=== PATIENT | male | born 1935 | race Caucasian/White ===

== ENCOUNTER 2018-12-20 15:49 | Inpatient (IN) | payer OTHER, MEDICARE ==
[~2018-12-20] VITALS: Ht 172.7 cm; Wt 58.5 kg
[2018-12-20] MEDS ORDERED: DONE10TA44 PO (17:31)
[2018-12-20] MEDS ORDERED: SER25 PO (17:31)
[2018-12-20] MEDS ORDERED: MEMA10TA PO (17:31)
[2018-12-20] MEDS ORDERED: TRIH2TAB3 PO (17:31)
[2018-12-20 17:38] VITALS: BP_SYST 128
[2018-12-20] MEDS ORDERED: FLU VACC TS2019(65UP)/MF59C/PF 45 MCG/0.5 ML SYRINGE I.M. PRN (18:00)
--- NOTE | 2018-12-20 18:00 | NUR ---
ADMIT NOTE Received patient to the floor from Direct admit with a diagnosis of dehydration. Admission process initiated. patient oriented to pain management, safety and call light-teach back done.
[2018-12-20 18:44] LABS: BASOPHILS % (AUTO) 0.1 % (0.0-2.0); EOSINOPHILS # (AUTO) 0.1 K/uL (0.0-0.4); EOSINOPHILS % (AUTO) 1.7 % (0.0-4.0); HEMATOCRIT 46.6 % (36-54); HEMOGLOBIN 15.9 g/dL (14.0-18.0); LYMPHOCYTES # (AUTO) 1.9 K/uL (1.0-5.5); MEAN CORPUSCULAR HEMOGLOBIN 32 pg (27-31); MEAN CORPUSCULAR HGB CONC 34 % (32-36); MEAN CORPUSCULAR VOLUME 95 fL (79.0-98.0); MONOCYTES # (AUTO) 0.4 K/uL (0.0-1.0); MONOCYTES % (AUTO) 7.8 % (1.7-9.3); NEUTROPHILS # (AUTO) 3.3 K/uL (1.8-7.7); NEUTROPHILS % (AUTO) 57.4 % (40.0-70.0); PLATELET COUNT (AUTO) 198 K/uL (130-430); RED BLOOD CELL COUNT(AUTO) 4.93 MIL/uL (4.2-6.2); RED CELL DISTRIBUTION WIDTH 13.6 % (9.0-15.0); WHITE BLOOD COUNT (AUTO) 5.7 K/uL (4.8-10.8)
[2018-12-20 19:01] LABS: ALANINE AMINOTRANSFERASE 36 U/L (12-78); ALBUMIN 3.7 g/dL (3.4-4.8); ANION GAP 10 (5-15); ASPARTATE AMINOTRANSFERASE 22 U/L (10-37); CALCIUM 8.8 mg/dL (8.4-11.0); CHLORIDE 104 mmol/L (98-107); CREATININE 0.89 mg/dL (0.55-1.30); GLUCOSE 94 mg/dL (70-99); POTASSIUM 3.6 mmol/L (3.5-5.1); SODIUM SERUM 141 mmol/L (136-145); TOTAL BILIRUBIN 0.5 mg/dL (0.0-1.0); UREA NITROGEN, BLOOD 36 mg/dL (8-21)
[2018-12-20 20:00] VITALS: BP_SYST 110
--- NOTE | 2018-12-20 20:00 | NUR ---
ASSUMED CARE. RECEIVED AWAKE,ALERT,VERY CONFUSED. AFEBRILE, NOT IN ACUTE DISTRESS. NO PAIN OR DISCOMFORT NOTED. WITH SALINE LOCK TO THE LEFT UPPER ARM INTACT. SAO2=97% ON ROOM AIR. VS STABLE, WILL CONTINUE TO MONITOR. NEEDS ATTENDED.
[2018-12-20] MEDS: cefTRIAXone 1 GM in D5W 50 ML IV SCH ×2 (21:31→22:21)
[2018-12-20] MEDS: KCL 20 mEq in D5/0.45NS 1000mL 1,000 ML IV SCH (21:32)
--- NOTE | 2018-12-20 21:32 | NUR ---
IV FLUID D5 1/2 NS + KCL 20 MEQ STARTED AT 75 ML/HR.
[2018-12-20] MEDS ORDERED: KCL 20 mEq in D5/0.45NS 1000mL 1,000 ML IV ONE (21:38)
[2018-12-20] MEDS ORDERED: cefTRIAXone 1 GM VIAL ONE (21:38)
--- NOTE | 2018-12-20 22:21 | NUR ---
ROCEPHIN 1 GM IVPB GIVEN AFTER BLOOD CULTURES WERE DRAWN.
[2018-12-20] MEDS ORDERED: QUEtiapine FUMARATE 25 MG TABLET PO SCH (23:00)
--- NOTE | 2018-12-20 23:52 | NUR ---
SEROQUEL 25 MG PO GIVEN.
[2018-12-21 01:15] VITALS: BP_SYST 121
--- NOTE | 2018-12-21 02:15 | NUR ---
PT.STILL VERY CONFUSED. SENIOR COMPLIANCE ANALYST.ALERTED RN THAT PT.IS OFF OF THE MONITOR. BECOMES AGITATED AND COMBATIVE WHEN RN TRIES TO FIX SURVEYOR HELPER ROD LEADS. ASKED PATRICK IF HE WOULD LIKE SOME PRN SEDATIVE/ANTI-ANXIETY MEDICATION BUT HE SAID TO JUST GIVE HIS SEROQUEL DOSE WHICH WAS ALREADY GIVEN.
--- NOTE | 2018-12-21 04:00 | NUR ---
AWAKE,NOT IN ACUTE DISTRESS. NOTED TO BE MORE CALM. NO PAIN OR DISCOMFORT. WILL CONTINUE TO MONITOR. NEEDS ATTENDED.
--- NOTE | 2018-12-21 04:25 | NUR ---
URINE SPECIMEN COLLECTED AND HANDED OVER TO LAB.SPECIAL EDUCATION PROFESSOR RADHA.
[2018-12-21 04:41] LABS: BILIRUBIN,URINE NEGATIVE (NEGATIVE); BLOOD, URINE NEGATIVE (NEGATIVE); CLARITY/URINE SL HAZY (CLEAR); COLOR,URINE YELLOW (YELLOW); GLUCOSE,URINE NEGATIVE (NEGATIVE); KETONES,URINE NEGATIVE (NEGATIVE); LEUKOCYTE ESTERASE ,URINE TRACE (NEGATIVE); NITRITE, URINE POSITIVE (NEGATIVE); PH,URINE 7.5 (5.0-8.0); PROTEIN URINE NEGATIVE (NEGATIVE); UROBILINOGEN,URINE 0.2 (0.2-1.0)
[2018-12-21 05:14] LABS: BACTERIA,URINE MANY /HPF (None Seen); RBC,URINE 0-3 /HPF (0-3)
--- NOTE | 2018-12-21 06:30 | NUR ---
ASLEEP, NO PAIN OR DISCOMFORT. KEPT WARM AND COMFORTABLE.
--- NOTE | 2018-12-21 07:10 | NUR ---
ENDORSED CARE TO DARIO CAI STABLE.
[2018-12-21 07:41] VITALS: BP_SYST 110; BP_SYST 113
--- NOTE | 2018-12-21 07:50 | NUR ---
INITIAL NOTE RECEIVED PT IN BED, NO S/S OF DISTRESS OR SOB NOTED, PT HAS NO FACIAL GRIMACING FOR PAIN AT THIS TIME, PT IN STABLE CONDITION, PT AAOX1, VERBAL, CONFUSED, PROVIDED PT WITH REALITY ORIENTATION. IV CATHETER PATENT, NO SIGNS OF INFECTION OR INFILTRATION NOTED, RUNNING IV FLUIDS ORDERED. BED AT LOWEST POSITION, CALL LIGHT WITHIN REACH, WILL CONTINUE TO MONITOR PT FOR ANY CHANGES. FALL AND SAFETY PRECAUTIONS IN PLACE. BED ALARM ON.
[2018-12-21] MEDS: TRIHEXYPHENIDYL HCL 2 MG TABLET (ARTANE) PO SCH ×2 (08:29→20:03)
[2018-12-21] MEDS: MEMANTINE HCL 5 MG TABLET PO SCH ×2 (08:29→20:00)
--- NOTE | 2018-12-21 09:59 | NUR ---
Nutrition Update Mazin Scale 15 noted. Pt admitted for dehydration, multiple falls, UTI. Diet: regular BMI: 19.6 kg/m2 RD to follow per nutrition care standards.
--- NOTE | 2018-12-21 10:00 | NUR ---
PT PT AMBULATED WITH PHYSICAL THERAPY, WEAK GAIT NOTED.
[2018-12-21] MEDS: KCL 20 mEq in D5/0.45NS 1000mL 1,000 ML IV SCH ×2 (10:14→22:16)
--- NOTE | 2018-12-21 10:20 | NUR ---
ROUNDS PT IN BED, NO S/S OF DISTRESS OR SOB NOTED, PT HAS NO FACIAL GRIMACING OR C/O PAIN AT THIS TIME, PT IN STABLE CONDITION. PT RESTING COMFORTABLY. BED ALARM ON, SAFETY PRECAUTIONS IN PLACE.
--- NOTE | 2018-12-21 12:04 | NUR ---
Fall Risk Patient is high fall risk due to altered mental status and history of multiple falls. Patient educated on how to use call light. Patient instructed not to get up without assistance. Patient educated to risk of injury if fall occurs. Three side rails up at all times and bed alarm on. Patient unable to demonstrate proper use of call light. Patient demonstrating less impulsivity. Will continue to reorient patient and round frequently.
[2018-12-21 12:24] VITALS: BP_SYST 108
--- NOTE | 2018-12-21 12:55 | NUR ---
ROUNDS PT IN BED, NO S/S OF DISTRESS OR SOB NOTED, PT HAS NO FACIAL GRIMACING OR C/O PAIN AT THIS TIME, PT IN STABLE CONDITION. PT RESTING COMFORTABLY. BED ALARM ON, SAFETY PRECAUTIONS IN PLACE. PT CONTINUES TO BE CONFUSED BUT REDIRECTABLE AT THIS TIME.
--- NOTE | 2018-12-21 14:50 | NUR ---
ROUNDS PT IN BED, NO S/S OF DISTRESS OR SOB NOTED, PT HAS NO C/O PAIN AT THIS TIME, PT IN STABLE CONDITION. PT RESTING COMFORTABLY, WILL CONTINUE TO MONITOR PT FOR ANY CHANGES. BED ALARM ON AND SAFETY AND FALL PRECAUTIONS IN PLACE.
[2018-12-21 16:41] VITALS: BP_SYST 113
--- NOTE | 2018-12-21 16:45 | NUR ---
CALL DR DEBI CHAMPION, AWAITING CALL BACK, PT ATTEMPTED TO GET OUT OF BED THREE TIMES, UNABLE TO EDUCATE PT DUE TO CONFUSION. ATTEMPTED TO ORIENT PATIENT BUT UNABLE DUE TO MENTAL STATUS. CHARGE NURSE MADE AWARE. PT UNABLE TO BE REDIRECTED, BED ALARM ON, THREE SIDE RAILS UP AND IN PLACE. CALL LIGHT WITHIN REACH. Addendum: 12/21/18 at 1807 by Estee Bosch RN [id number] MD WOODRUFF FOR ORDER FOR SITTER, PT CONTINUES TO ATTEMPT TO GET OUT BED, CONFUSED, UNABLE TO REORIENT PATIENT. NURSE STANDING NEXT TO PT FOR SAFETY.
--- NOTE | 2018-12-21 18:22 | NUR ---
MD ROUNDS DR CARRERA ROUNDCAROL ANN, AWARE OF PATIENT'S CONDITION. AWARE THAT PT IS CONFUSED AND UNABLE TO RE ORIENT. MD GAVE ORDER FOR SITTER AT BEDSIDE AND TO D/C TELE AND CHANGE PT TO MED SURG.
--- NOTE | 2018-12-21 18:37 | NUR ---
CLOSING NOTE PT IN BED, NO S/S OF DISTRESS OR SOB NOTED, PT HAS NO FACIAL GRIMACING FOR PAIN AT THIS TIME, PT IN STABLE CONDITION, PT AAOX1, VERBAL, CONFUSED, PROVIDED PT WITH REALITY ORIENTATION. UNABLE TO REDIRECT PT NOT TO GET OUT OF BED, SITTER AT BEDSIDE FOR SAFETY. IV CATHETER PATENT, NO SIGNS OF INFECTION OR INFILTRATION NOTED, RUNNING IV FLUIDS ORDERED. BED AT LOWEST POSITION, CALL LIGHT WITHIN REACH, WILL ENDROSE CARE OF PT TO INCOMING NURSE. FALL AND SAFETY PRECAUTIONS IN PLACE. BED ALARM ON.
--- NOTE | 2018-12-21 19:10 | NUR ---
OPENING NOTES RECEIVED PATIENT IN BED ALERT/CONFUSED. BREATHING UNLABORED ON ROOM AIR. IVF INFUSING ORDERED. SITTER AT BEDSIDE. BED IN LOWEST LOCKED POSITION WITH ALARM ON.
[2018-12-21 19:51] VITALS: BP_SYST 119
[2018-12-21] MEDS: DONEPEZIL HCL 5 MG TABLET (ARICEPT) PO SCH (20:01)
[2018-12-21] MEDS: ENOXAPARIN SODIUM 40 MG/0.4 ML SYRINGE SUBCUT SCH (20:03)
--- NOTE | 2018-12-21 20:03 | NUR ---
MED PASS PATIENT DUE MEDICATIONS GIVEN AND TOLERATED. VITAL SIGNS STABLE.
--- NOTE | 2018-12-21 20:45 | NUR ---
IV LINE OLD IV LINE OUT. NEW IV LINE INSERTED TO LFA # 22 WITH GOOD BLOOD RETURN.
[2018-12-21] MEDS ORDERED: QUEtiapine FUMARATE 25 MG TABLET PO SCH (21:00)
[2018-12-21] MEDS: cefTRIAXone 1 GM in D5W 50 ML IV SCH (22:14)
[2018-12-21 22:56] VITALS: BP_SYST 123
--- NOTE | 2018-12-22 00:14 | NUR ---
INCONTINENCE INCONTINENCE CARE DONE BY SITTER/WOVEN LABEL DESIGNER. PATIENT KEPT CLEAN AND DRY.
--- NOTE | 2018-12-22 01:40 | NUR ---
ENDORSED PATIENT CARE ENDORSED TO RADHA CAI.
--- NOTE | 2018-12-22 02:00 | NUR ---
Assumed nursing care of the patient from nurse Haskins. The patient is awake and appears confused. Patient is oriented to name only. Direct observer is in the room with patient. IV fluid of D51/2 NS+20Meq KCL is infusing well in LFA at 75ml/hr without any signs of infiltration. Fall and safety precautions are in place. No acute distress is noted.
--- NOTE | 2018-12-22 04:00 | NUR ---
Patient was sleeping. No signs of distress were present. Fall and safety precautions were in place. Direct observer was in the room with the patient.
--- NOTE | 2018-12-22 06:19 | NUR ---
Pt is awake and resting quietly in bed. All pt's needs were attended to. IV fluid is infusing well in LFA without any signs of infiltration. Direct observer is at the bedside. Will endorse to day shift nurse.
[2018-12-22 08:00] VITALS: BP_SYST 126
--- NOTE | 2018-12-22 08:00 | NUR ---
RN INITIAL NOTES RECEIVED PATIENT IN BED VERBAL AND NOT IN ANY DISTRSS IVF INFUSING TO LEFT ARM ORDERED 'PATIENT TOOK MED SWITH NO PROBLEM PATIENT IS CONFUSED, WILL CONT CARE
[2018-12-22] MEDS: MEMANTINE HCL 5 MG TABLET PO SCH ×2 (09:33→21:27)
[2018-12-22] MEDS: TRIHEXYPHENIDYL HCL 2 MG TABLET (ARTANE) PO SCH ×2 (09:34→21:27)
--- NOTE | 2018-12-22 10:00 | NUR ---
ROUNDS PATIENT INTERMITTENTLY ASLEEP AND ANSWERS QUESTION WILL CONT TO MONITO
[2018-12-22 11:21] VITALS: BP_SYST 143
--- NOTE | 2018-12-22 12:30 | NUR ---
ROUNDS PATIENT STARTED TO TALK NOS STOP AND WANTS THE POLICE TO BE CALLED FOR HELP REORIENTED AND REDIRECTED BUT WITH SHORT ATTENTION SPAN . PATIENT WAS WALKED BY PHYSICAL THERAPIST AND ABLE TO TOLERATE
--- NOTE | 2018-12-22 13:49 | NUR ---
PHYSICAL THERAPY CO-SIGN The Physical Therapy Progress Notes documented by Silica Mixer Operator have been reviewed. Reviewed/Co-Signed by: Ben Saavedra. PT Documentation Done by: BLAYNE WEI PTA Addendum: 12/22/18 at 1351 by Ben Saavedra PT Amended: Links added.
--- NOTE | 2018-12-22 13:50 | NUR ---
PHYSICAL THERAPY CO-SIGN The Physical Therapy Progress Notes documented by Used Car Lot Porter have been reviewed. Reviewed/Co-Signed by: Ben Saavedra PT Documentation Done by: BLAYNE WEI PTA Addendum: 12/22/18 at 1351 by Ben Saavedra PT Amended: Links added.
--- NOTE | 2018-12-22 14:00 | NUR ---
AGITATION PATIENT FULLY AWAKE THIS TIME AND STARTED TO TALK NOS STOP AND WANTS THE POLICE . GUARD CAME BY AND SPOKE WITH THE PATIENT AND ABLE TO SPEAK WITH HIM AND PATIENT STILL KEEP TALKING , REFUSED TO BE CHANGED , WILL NOTIFY DR GALLAGHER FOR THE BEHAVIOUR AND ORDER
--- NOTE | 2018-12-22 15:24 | NUR ---
Service Clerk: Met with pt. who had multiple falls [employer] met with pt. who was a poor historian. Pt. stated he did not have lunch and his sitter interjected stating he did eat. CHIEF [employer] told pt. she will ask his Rn. Kylah if she could get him a snack after their meeting. Pt. tried to answer the questions to the best of his ability, but he was unable to answer any questions. [employer] was not able to complete the Discharge Planning Assessment. Pt. did not know what type of dwelling he lives in. Pt did not know details about his emergency contacts. CH[employer] told him it was ok and that she could look up some answers in the computer. Pt. did not remember if he fell. CHIEF [employer]ON [employer] thanks pt. for his time and told him he could have his Rn call oncology social work if he wanted to speak to anyone. [employer] will remain available as needed. [employer] called Isabella Lamas who stated she is pts. . She was able to fill in the blanks for [employer] to complete the DCPA. Please see assessment. As far as family support, Isabella stated Marylu is their adult daughter who resides in [place]. Her other adult daughter, Phillip and adult son, Avtar reside with her and her (pt.). states she will come see the pt. today before visiting hours are done. [employer]F [employer] thanked her for her help and will remain available as needed.
[2018-12-22 15:36] VITALS: BP_SYST 108
[2018-12-22] MEDS: KCL 20 mEq in D5/0.45NS 1000mL 1,000 ML IV SCH (15:54)
[2018-12-22] MEDS ORDERED: HALOPERIDOL LACTATE 5 MG/ML VIAL IM ONE (17:30)
--- NOTE | 2018-12-22 17:45 | NUR ---
DELON CALLED DR CARRERA PATIENT AGIATATION INCREASED AND PULLED AND CUT IV UNABLE TO CHECK PATIENT KICK AND HIT STAFF , ABLE TO GIVE HALDOL IM
--- NOTE | 2018-12-22 18:18 | NUR ---
THE PT CUT HIS IV TUBE AND HIS BLEEDING FROM HIS IV I TRY TO CLEAN HIM ME AND THE SITTER PUT THE PATIENT HITTING US AND KIKKING RN GIVE HIM MEDICITION TO BE CAME DOWN I TOLD ANTOTHER SHIFT THE LAMINATING MACHINE OFFBEARER TO CLEAN HIM WHEN HE CAM DOWN BECAUSE I TRY PUT I GET HIT FROM HIM
--- NOTE | 2018-12-22 19:07 | NUR ---
ENDORSEMENT PATIENT WILL BE ENDORSED TO NEXT SHIFT TO FIV IV LINE . PATIENT STARTING TO CALM FROM HALDOL BUT STILL HITS WHENEVER TOUCHED WILL FOLOOW UP WITH NEXTR SHIFT
--- NOTE | 2018-12-22 19:59 | NUR ---
Patient is in bed resting. Patient is awake and confused. Patient is orientated to name only. Direct observer is at the bedside. Saline lock in LFA is in place. IV fluid is not connected at this time, patient is taking off his gown. Will reconnect IV fluid when patient calms down.
[2018-12-22 20:00] VITALS: BP_SYST 114
[2018-12-22] MEDS: QUEtiapine FUMARATE 25 MG TABLET PO SCH (21:27)
[2018-12-22] MEDS: DONEPEZIL HCL 5 MG TABLET (ARICEPT) PO SCH (21:27)
[2018-12-22] MEDS: ENOXAPARIN SODIUM 40 MG/0.4 ML SYRINGE SUBCUT SCH (21:28)
[2018-12-22] MEDS: cefTRIAXone 1 GM in D5W 50 ML IV SCH (21:28)
--- NOTE | 2018-12-22 21:28 | NUR ---
HS medications given. No difficulty swallowing noted. Pt remains confused and oriented to his name only. IVF is infusing well in LFA. Direct Observer is at the bedside.
--- NOTE | 2018-12-22 23:00 | NUR ---
Patient was resting in bed. Direct observer is near bedside. Patient's bed alarm is active. Fall and safety precautions are in place. IV fluid is infusing well with no signs of infiltration.
[2018-12-23 00:03] VITALS: BP_SYST 108
--- NOTE | 2018-12-23 01:00 | NUR ---
Patient is resting comfortably. Direct observer is in the room. Patient's bed is in the lowest and locked position. Fall and safety precautions are in place.
--- NOTE | 2018-12-23 03:00 | NUR ---
Pt i sleeping without any distress noted. IVF is infusing well in LFA. Direct Observer is in the room with pt.
[2018-12-23] MEDS: KCL 20 mEq in D5/0.45NS 1000mL 1,000 ML IV SCH ×2 (04:34→16:16)
--- NOTE | 2018-12-23 05:00 | NUR ---
Pt continues to sleep without any distress noted. IVF is infusing well in LFA. fall and safety precautions are in place. Direct Observer is in the room with pt.
--- NOTE | 2018-12-23 06:30 | NUR ---
Patient is resting comfortably. Direct observer is in the room. Patient's bed is in the lowest and locked position. Fall and safety precautions are in place. Patient is AOOx1 (self). All patient's needs were attended to. IV fluid is infusing LFA, no signs of infiltration. Will endorse to dayshift nurse.
--- NOTE | 2018-12-23 08:00 | NUR ---
RN INITIAL NOTES RECEIVED PATIENT IN BED ASLEEP NOT IN ANY DISTRESS PATIENT ENDORSED CALMED AND SLEEP LAST NIGHT IVF INFUSING ORDERED , WILL MONITOR AND WILL CONT WITH SITTER
--- NOTE | 2018-12-23 09:00 | NUR ---
ASLEEP PATIENT STILL SLEEPING A THIS TIME WILL GIVE MEDS ONCE AWAKE AND AGREED
[2018-12-23 09:28] VITALS: BP_SYST 124
[2018-12-23] MEDS: QUEtiapine FUMARATE 25 MG TABLET PO SCH (09:30)
[2018-12-23] MEDS: TRIHEXYPHENIDYL HCL 2 MG TABLET (ARTANE) PO SCH (09:31)
[2018-12-23] MEDS: MEMANTINE HCL 5 MG TABLET PO SCH (09:31)
--- NOTE | 2018-12-23 09:33 | NUR ---
AWKE PATIENT WOKE AND TOOK MEDS NO DISTRESS NO C/O OF PAIN
--- NOTE | 2018-12-23 11:10 | NUR ---
Discharge Planning: [facility] (f [phone] p [phone]) DCP to follow up Addendum: 12/23/18 at 1648 by Mamie Evans DP [facility] (f [phone] p [phone]) Rm 138C, [facility] ([phone]) 6:30pm P/U. Patient packet taken to nurse station. DCP made nurse aware.
[2018-12-23 11:18] VITALS: BP_SYST 137
--- NOTE | 2018-12-23 12:30 | NUR ---
ROUNDS PATIENT CALMED AT THIS TIME ATTENDED WITH CLOSE SUPERVISION BY SITTER ATE LUNCH NOT AGITATED AT THIS TIME
--- NOTE | 2018-12-23 14:00 | NUR ---
ROUNDS PATIENT STILL SLEEPING AT THIS TIME
--- NOTE | 2018-12-23 16:26 | NUR ---
DISCHARGE PATIENT SEEN BY DR LAURENT WITH ORDERS TO DC PATIENT TO [facility] AND AWAITING FOR CM TO PROCESS DISCHARGE
[2018-12-23 16:30] VITALS: BP_SYST 109
[2018-12-23 16:46] VITALS: BP_SYST 109
--- NOTE | 2018-12-23 17:30 | NUR ---
ENDORSEMENT PATIENT IS FOR DC TO [facility] REPORT GIVEN TO BASSEM AND INFORMED FASHION DIRECTOR HERE 630 PM .
--- NOTE | 2018-12-23 18:44 | NUR ---
ADDITIONAL ENDORSEMENT PATIENT IS READY FOR DC TO [facility] AND PER [facility] ASSISTANT DIRECTOR OF PLANT OPERATIONS MOVED TO 193, CHARGE NURSE MADE AWARE , PATIENT AT THIS TIME STILL WITH IV INFUSING
--- NOTE | 2018-12-23 20:06 | NUR ---
discharge: pt is chicken picker by ambulance Addendum: 12/23/18 at 2008 by Liu Petty RN ambulance [facility], all belongings is with the pt. pt health information is given to ambulance crew. id band remove and iv site remove, no bleeding noted.
--- NOTE | 2018-12-24 10:53 | NUR ---
PHYSICAL THERAPY CO-SIGN The Physical Therapy Progress Notes documented by Automation Developer have been reviewed. Reviewed/Co-Signed by: Ben Saavedra PT Documentation Done by: BLAYNE WEI PTA Addendum: 12/24/18 at 1053 by Ben Saavedra PT Amended: Links added.
== END 2018-12-23 20:10 | DRG 689 ==
LOC: STU 16:36 → SMU 12-21 23:10
PROVIDERS: ADMIT Family Medicine; ATTEND Family Medicine
DX: N39.0 Urinary tract infection, site not specified (principal); G93.41 Metabolic encephalopathy; F03.90 Unspecified dementia, unspecified severity, without behavioral disturbance, psychotic disturbance, mood disturbance, and anxiety; E86.0 Dehydration; M19.90 Unspecified osteoarthritis, unspecified site; I10 Essential (primary) hypertension
CPT/HCPCS: 36415; 80053; 81000-TC; 85025; 87040-TC; 87086; 97110-GP; 97116-GP; 97530-GP; G0378; J0696; J1630; J1650; J7060

== ENCOUNTER 2020-10-23 17:45 | Inpatient (IN) | payer OTHER, MEDICARE, SELFPAY ==
[~2020-10-23] VITALS: Ht 162.6 cm; Wt 57.6 kg
[~2020-10-23 17:45] MED LIST: DONE10TA44 PO; MEMA10TA PO; SER25 PO; TRIH2TAB3 PO
[2020-10-23 18:02] VITALS: BP_SYST 150
--- NOTE | 2020-10-23 19:43 | NUR ---
Patient to ER bed 05 to gown for evaluation. Side rails up.
[2020-10-23 19:46] LABS: ANION GAP 7 (5-15); CALCIUM 9.5 mg/dL (8.4-11.0); CHLORIDE 105 mmol/L (98-107); GLUCOSE 142 mg/dL (70-99); POTASSIUM 4.1 mmol/L (3.5-5.1); SODIUM SERUM 139 mmol/L (136-145); UREA NITROGEN, BLOOD 34 mg/dL (8-21)
[2020-10-23 19:52] LABS: ALANINE AMINOTRANSFERASE 30 U/L (12-78); ASPARTATE AMINOTRANSFERASE 17 U/L (10-37); TOTAL BILIRUBIN 0.6 mg/dL (0.0-1.0)
[2020-10-23 19:54] LABS: ACETAMINOPHEN < 1 ug/mL (1-30); ALCOHOL, BLOOD < 3 mg/dL (<10)
[2020-10-23 19:56] LABS: BASOPHILS % (AUTO) 0.2 % (0.0-2.0); EOSINOPHILS % (AUTO) 0.3 % (0.0-4.0); HEMATOCRIT 47.3 % (36-54); HEMOGLOBIN 16.1 g/dL (14.0-18.0); LYMPHOCYTES # (AUTO) 1.1 K/uL (1.0-5.5); LYMPHOCYTES % (AUTO) 12.3 % (20.5-51.5); MEAN CORPUSCULAR HEMOGLOBIN 33 pg (27-31); MEAN CORPUSCULAR HGB CONC 34 % (32-36); MEAN CORPUSCULAR VOLUME 96 fL (79.0-98.0); MONOCYTES # (AUTO) 0.4 K/uL (0.0-1.0); MONOCYTES % (AUTO) 5.2 % (1.7-9.3); NEUTROPHILS # (AUTO) 7.1 K/uL (1.8-7.7); PLATELET COUNT (AUTO) 207 K/uL (130-430); RED BLOOD CELL COUNT(AUTO) 4.95 MIL/uL (4.2-6.2); RED CELL DISTRIBUTION WIDTH 13.7 % (9.0-15.0); WHITE BLOOD COUNT (AUTO) 8.7 K/uL (4.8-10.8)
[2020-10-23 20:32] LABS: CHOLESTEROL 169 mg/dL (<200); HDL CHOLESTEROL 54 mg/dL (>45); LDL CHOLESTEROL 104 mg/dL (<100); TRIGLYCERIDES 66 mg/dL (30-150)
--- NOTE | 2020-10-23 20:33 | NUR ---
DR. OLIVA AT BEDSIDE FOR EVALUATION.
--- NOTE | 2020-10-23 20:45 | NUR ---
Pt in for medical clearance to be admitted to SNF. Pt awake and confused, able to follow commands and is redirectable at times. According to , pt's behavior has become more aggressive in nature. VS WNL, pt denies any painor discomfort.
[2020-10-23 21:04] LABS: BILIRUBIN,URINE NEGATIVE (NEGATIVE); BLOOD, URINE NEGATIVE (NEGATIVE); CLARITY/URINE CLEAR (CLEAR); COLOR,URINE YELLOW (YELLOW); GLUCOSE,URINE NEGATIVE (NEGATIVE); KETONES,URINE TRACE (NEGATIVE); LEUKOCYTE ESTERASE ,URINE TRACE (NEGATIVE); NITRITE, URINE NEGATIVE (NEGATIVE); PROTEIN URINE NEGATIVE (NEGATIVE); UROBILINOGEN,URINE 0.2 (0.2-1.0)
[2020-10-23 21:18] LABS: BARBITURATE, URINE NEGATIVE (NEG <=200); BENZODIAZEPINE, URINE NEGATIVE (NEG <=150); CANNABINOID, URINE NEGATIVE (NEG <=50); COCAINE, URINE NEGATIVE (NEG <=150); METHAMPHETAMINES SCREEN,URINE NEGATIVE (NEG <=500); OPIATE, URINE NEGATIVE (NEG <=100); PHENCYCLIDINE SCREEN,URINE NEGATIVE (NEG <=25); UR TRICYCLIC ANTIDEPRESSANTS NEGATIVE (NEG <=300); URINE AMPHETAMINE NEGATIVE (NEG <=500); URINE METHADONE NEGATIVE (NEG <=200); URINE OXYCODONE SCREEN NEGATIVE (NEG <=100); URINE PROPOXYPHENE SCREEN NEGATIVE (NEG <=300)
[2020-10-23 21:24] LABS: BACTERIA,URINE RARE /HPF (None Seen); RBC,URINE NONE SEEN /HPF (0-3); WBC,URINE 0-3 /HPF (0-3)
[2020-10-23] MEDS ORDERED: HALOPERIDOL LACTATE 5 MG/ML VIAL IM ONE (21:30)
[2020-10-23] MEDS ORDERED: DIPHENHYDRAMINE INJ 50 MG/ML VIAL IM ONE (21:30)
--- NOTE | 2020-10-23 21:35 | NUR ---
Pt restless and agitated, attempting to get out of bed. Pt is not redirecatable. Administered Benadryl and Haldol as ordered per APR. Pt tolerated well.
--- NOTE | 2020-10-23 22:00 | NUR ---
# 20 gauge angiocath placed to right AC. Use of asceptic technique. Opsite placed over site. Blood return noted. Flushed with 10 cc of normal saline. No evidence of infiltration noted. Patient tolerated well.
--- NOTE | 2020-10-23 22:43 | NUR ---
Pt is now sleeping in [facility]. No s/s of distress noted. VS WNL.
[2020-10-23] MEDS: D5NS 500 ML IV SCH (22:45)
[2020-10-23] MEDS ORDERED: DOCU-144 PO (22:54)
--- NOTE | 2020-10-23 22:54 | NUR ---
Patient's Isabella contacted, medication reconciled as provided and according to her, she will bring the POLST paper from home for Code status.
--- NOTE | 2020-10-23 23:11 | NUR ---
Pt transferrred to [address] via gurdanika with RN. Pt sleeping, VS SNL, on RA. Endorsed SBAR report to MS RN. All belongings brought with pt.
--- NOTE | 2020-10-23 23:15 | NUR ---
ADMISSION NOTE Received patient from ER via gurney. Patient admitted with diagnosis of MULTIPLE FALLS. CONFUSION. Patient is awake, alert, oriented X . Patient oriented to hospital room, call light, toileting, pain management and safety-teach back done. Patient informed that their room number is . Personal belongings checked and Belongings List documented. Call light within reach.
[2020-10-24 00:22] VITALS: BP_SYST 138
--- NOTE | 2020-10-24 03:14 | NUR ---
RN rounds Pt is sleeping. No s/s acute distress. Fall and safety precautions in place. Will continue to monitor.
--- NOTE | 2020-10-24 06:42 | NUR ---
Closing note Pt is asleep in bed. No s/s of acute distress. Fall and safety precautions are in place with bed in lowest position, bed alarm on, and call light within reach. All needs met throughout shift. Will continue to monitor until endorsed to day shift RN.
[2020-10-24 07:31] VITALS: BP_SYST 90
--- NOTE | 2020-10-24 08:00 | NUR ---
PATIENT IN BED, NO S/S OF DISTRESS, TOLERATING CARE, IV INTACT PATENT, BED IN LOWEST LOCKED POSITION, CALL LIGHT WITHIN REACH, WILL CONTINUE TO MONITOR.
--- NOTE | 2020-10-24 08:48 | NUR ---
Nutrition Update Mazin Scale 14 noted. Pt admitted for Multiple Falls, Confusion Diet: Mechanical soft BMI: 21.8 kg/m2 RD to follow per nutrition care standards.
--- NOTE | 2020-10-24 10:00 | NUR ---
BROUGHT IN POLST TO MAKE PATIENT A DNR, FILED IN CHART, MD AND CHARGE NURSE MADE AWARE.
[2020-10-24 11:44] VITALS: BP_SYST 101
[2020-10-24] MEDS ORDERED: DOCUSATE SODIUM 100 MG CAPSULE PO PRN (14:00)
--- NOTE | 2020-10-24 19:00 | NUR ---
PATIENT REMOVED IV AN HOUR AGO, ATTEMPTED TO GET NEW ONE IN, PATIENT BECAME ANGRY AND WAS UNSUCCESSFUL, ENDORSED TO BUSINESS BANKING MANAGER.
--- NOTE | 2020-10-24 19:30 | NUR ---
Opening note Received report from day shift RN. Pt is awake lying in bed. No s/s of acute distress. Fall and safety precautions are in place with bed in lowest position, bed alarm on, side rails up, and call light within reach. Will continue to monitor
[2020-10-24 20:00] VITALS: BP_SYST 140
[2020-10-24] MEDS: DONEPEZIL HCL 5 MG TABLET (ARICEPT) PO SCH (21:57)
[2020-10-24] MEDS: MEMANTINE HCL 5 MG TABLET PO SCH (21:58)
[2020-10-24] MEDS: ENOXAPARIN SODIUM 40 MG/0.4 ML SYRINGE SUBCUT SCH (21:59)
[2020-10-24] MEDS: D5NS 500 ML IV SCH ×2 (23:20→23:21)
--- NOTE | 2020-10-25 00:15 | NUR ---
RN rounds Pt is awake lying in bed. No s/s of acute distress. No needs at this time. Bed is in lowest position with side rails and bed alarm on. Call light within reach. Will continue to monitor
[2020-10-25 00:38] VITALS: BP_SYST 138
--- NOTE | 2020-10-25 06:00 | NUR ---
New IV placement right forearm 24G, intact and patent. no s/s of infiltration
[2020-10-25] MEDS: D5NS 500 ML IV SCH ×2 (06:30→13:15)
--- NOTE | 2020-10-25 06:48 | NUR ---
Closing note Pt is resting in bed. No s/s of acute distress. Breathing is even and unlabored. IV site is intact and patent with fluids running at ordered rate. Fall and safety precautions are in place with bed in lowest position, bed alarm on, and call light within reach. All needs met throughout shift. Will continue to monitor until endorsed to day shift
--- NOTE | 2020-10-25 07:44 | NUR ---
PATIENT IN BED, NO S/S OF DISTRESS, TOLERATING FLUIDS AND STAYING ON ROOM AIR, NO REPORTED PAIN DISCOMFORT AT THIS TIME, WILL CHECK ON PATIENT FREQUENTLY SINCE HE IS CONFUSED AND TRIES TO GET OUT OF BED WITHOUT ASSISTANCE, BED IN LOWEST LOCKED POSITION, SAFETY MEASURES IN PLACE, CALL LIGHT WITHIN REACH, IV INTACT PATENT, WILL CONTINUE TO MONITOR, WILL USE WASH HELPER FOR PALESTINIAN SPEAKING PATIENT.
[2020-10-25] MEDS: MEMANTINE HCL 5 MG TABLET PO SCH ×2 (09:25→20:27)
--- NOTE | 2020-10-25 12:00 | NUR ---
patient confused, repeatedly trying to get out of bed, tolerating iv fluids, reoriented and told to stay in bed, eats all of food.
[2020-10-25 12:54] VITALS: BP_SYST 134
--- NOTE | 2020-10-25 16:00 | NUR ---
patient educated to stay in bed, spilled water on self, cleaned fully and changed all linens.
[2020-10-25 16:40] VITALS: BP_SYST 139
--- NOTE | 2020-10-25 18:00 | NUR ---
[facility]Referral sent to [facility]
[2020-10-25 20:00] VITALS: BP_SYST 139
[2020-10-25] MEDS: DONEPEZIL HCL 5 MG TABLET (ARICEPT) PO SCH (20:27)
[2020-10-25] MEDS: ENOXAPARIN SODIUM 40 MG/0.4 ML SYRINGE SUBCUT SCH (20:28)
--- NOTE | 2020-10-25 21:50 | NUR ---
IV SITE INFILTRATED, PT RESTLESS Will wait until patient calms down later in shift to insert new IV
--- NOTE | 2020-10-25 21:53 | NUR ---
PAGED PAGED DR CARRERA REGARDING ORDERS
--- NOTE | 2020-10-25 21:56 | NUR ---
PAGED DR. CARRERA DUE TO RESTLESSNESS/ AGITATION DR. CARRERA MADE AWARE, ORDERS HALDOL 3MG IM ONCE
[2020-10-25] MEDS ORDERED: HALOPERIDOL LACTATE 5 MG/ML VIAL IM ONE (22:00)
[2020-10-26] VITALS: BP_SYST 146
--- NOTE | 2020-10-26 | NUR ---
ROUNDING NOTES Patient resting in bed - no s/s pain or distress noted. Respirations even and unlabored - head of bed elevated. IV site patent - no s/s redness, infection, or infiltration. Bed locked and in lowest position. Call light within reach - bed alarm on.
[2020-10-26] MEDS: D5NS 500 ML IV SCH (03:12)
--- NOTE | 2020-10-26 07:20 | NUR ---
OPENING NOTES: RECEIVED PATIENT FROM VEHICLE DELIVERY WORKER NURSE. PATIENT IS AWAKE LAYING DOWN IN BED. TOLERATED OXYGEN ON ROOM AIR WITH NO DISTRESS NOTED. IV LINE PATENT AND INTACT WITH NO INFILTRATION NOTED. PATIENT STABLE AT THIS TIME. SAFETY, FALL, AND ASPIRATION PRECAUTIONS ARE IN PLACE. BED LOCKED IN LOWEST POSITION AND CALL LIGHT IN REACH. WILL CONTINUE TO MONITOR PATIENT FOR ANY CHANGES.
[2020-10-26 08:00] VITALS: BP_SYST 147
[2020-10-26] MEDS: MEMANTINE HCL 5 MG TABLET PO SCH (08:32)
--- NOTE | 2020-10-26 11:29 | NUR ---
DISCHARGE PLANNING Order for dc to SNF. [facility], states did not receive referral, refaxed referral. Received call back form Luz & pt accepted to room 112A, report [phone], anytime. Called & set up transportation belt picker with [facility], earliest time 230pm. Called & informed pt's Isabella Prakash, ph [phone], is agreeable [facility] is family preference. Updated pt's nurse. packet to [facility]. [facility], room [facility], report [phone] [id number] [id number] [facility] ambulance 1430 belt picker, ph [phone]
--- NOTE | 2020-10-26 11:30 | NUR ---
Isabella () and Ok (daughter) aware about the discharge of patient to [facility]. Called [facility] and spoke to Dee(nurse) and gave report. Patient will be pick-up by [facility] around 1430.
[2020-10-26 11:43] VITALS: BP_SYST 147
[2020-10-26 12:04] VITALS: BP_SYST 113
--- NOTE | 2020-10-26 14:35 | NUR ---
D/C Patient Patient given medication reconciliation form and D/C instructions. Exit Care provided. Patient verbalized understanding. MD discussed with patient the results and treatment provided. Ambulatory with steady gait [facility]. Patient in stable condition, ID band removed. IV catheter removed, intact and dressing applied, no active bleeding. Patient educated on pain management. All belongings sent with patient.
== END 2020-10-26 14:35 | DRG 682 ==
LOC: SED 17:45 → SMU 21:25
PROVIDERS: ADMIT Family Medicine; ATTEND Family Medicine
DX: N17.0 Acute kidney failure with tubular necrosis (principal); G93.41 Metabolic encephalopathy; E86.0 Dehydration; R29.6 Repeated falls; F03.90 Unspecified dementia, unspecified severity, without behavioral disturbance, psychotic disturbance, mood disturbance, and anxiety; M17.0 Bilateral primary osteoarthritis of knee; Z20.822 Contact with and (suspected) exposure to COVID-19
CPT/HCPCS: 36415; 80053; 80061; 80307; 81000; 83036; 85025; 87081; 96372; 99285; G0480; G0481; G0482; J1200; J1630; J1650

== ENCOUNTER 2021-03-18 21:09 | Inpatient (IN) | payer OTHER, MEDICARE, SELFPAY ==
[~2021-03-18] VITALS: Ht 172.7 cm; Wt 49.9 kg
[~2021-03-18 21:09] MED LIST changes: +DOCU-144 PO; -SER25 PO; -TRIH2TAB3 PO
[2021-03-18 21:13] VITALS: BP_SYST 151
--- NOTE | 2021-03-18 21:13 | NUR ---
Placed in room 01 . Placed on couture dressmaker, blood pressure machine and pulse oximeter. To gown for exam. Side rails up. Report given to TRELL HOLT
[2021-03-18] MEDS ORDERED: NACL 0.9% 1,000 ML IV ONE (21:15)
[2021-03-18] MEDS ORDERED: PIPERACILLIN/TAZO 4.5 GM in NS 100 ML IV ONE (21:15)
[2021-03-18] MEDS ORDERED: VANCOMYCIN HCL 1,000 MG in NS 250 ML IV ONE (21:15)
[2021-03-18] MEDS ORDERED: ACETAMINOPHEN 650 MG SUPP.RECT RC ONE (21:15)
--- NOTE | 2021-03-18 21:15 | NUR ---
First contact with pt. Pt has cc of cva symtoms. According to [facility] pt is altered, oriented only to person. According to family pt is altered at baseline but has declined rapidly over the past 2 days. Pt brought in on non-rebreather mask, and blood pressure is said to have been in the 60s upon ambulance arrival to pt's home. Pt currently using accessory mm and displaying active work of breathing, respirations even and tachypneic. S1, S2 tachycardic, skins are warm, dry, and intact, healed abrasion to right posterior forearm. Awaiting lab results and furhter orders. Will continue to monitor.
[2021-03-18] MEDS ORDERED: LORazepam 2 MG/ML VIAL IVP ONE (21:45)
--- NOTE | 2021-03-18 21:55 | NUR ---
End of life care decisions discussed with FAMILY by Dr. BLANDON. Opportunity for questions and concerns addressed. Patient's code status is DNR paperwork completed and placed in chart.
[2021-03-18] MEDS ORDERED: PIPERACILLIN/TAZOBACTAM 4.5 GM/VIAL (ZOSYN) IV ONE (22:01)
[2021-03-18] MEDS ORDERED: VANCOMYCIN HCL 1000 MG/VIAL IV ONE (22:01)
[2021-03-18 22:02] LABS: HEMATOCRIT 58.2 % (36-54); MONOCYTES # (AUTO) 0.2 K/uL (0.0-1.0); NEUTROPHILS # (AUTO) 9.3 K/uL (1.8-7.7)
--- NOTE | 2021-03-18 22:14 | NUR ---
Pt transfered to CT by tech.
[2021-03-18 22:28] LABS: INR 1.2 (0.80-1.20); PROTHROMBIN TIME 11.8 SECS (9.5-12.5)
[2021-03-18 22:36] LABS: BASOPHILS % (AUTO) 0.1 % (0.0-2.0); EOSINOPHILS % (AUTO) 0.1 % (0.0-4.0); HEMOGLOBIN 18.2 g/dL (14.0-18.0); LYMPHOCYTES # (AUTO) 0.5 K/uL (1.0-5.5); LYMPHOCYTES % (AUTO) 4.7 % (20.5-51.5); MEAN CORPUSCULAR HEMOGLOBIN 30 pg (27-31); MEAN CORPUSCULAR HGB CONC 31 % (32-36); MEAN CORPUSCULAR VOLUME 97 fL (79.0-98.0); MONOCYTES % (AUTO) 2.5 % (1.7-9.3); NEUTROPHILS % (AUTO) 92.6 % (40.0-70.0); PLATELET COUNT (AUTO) 278 K/uL (130-430); RED BLOOD CELL COUNT(AUTO) 5.98 MIL/uL (4.2-6.2); RED CELL DISTRIBUTION WIDTH 14.9 % (9.0-15.0)
[2021-03-18 22:43] LABS: CALCIUM 9.6 mg/dL (8.4-11.0); POTASSIUM 3.8 mmol/L (3.5-5.1); UREA NITROGEN, BLOOD 89 mg/dL (8-21)
[2021-03-18 22:48] LABS: ALBUMIN 2.4 g/dL (3.4-4.8); ASPARTATE AMINOTRANSFERASE 40 U/L (10-37)
[2021-03-18 23:13] LABS: ANION GAP 25 (5-15)
[2021-03-18 23:31] LABS: SODIUM SERUM 165 mmol/L (136-145)
[2021-03-18 23:32] LABS: ACETAMINOPHEN < 1 ug/mL (1-30); ALCOHOL, BLOOD < 3 mg/dL (<10); CHLORIDE 120 mmol/L (98-107); GLUCOSE 606 mg/dL (70-99)
[2021-03-18 23:36] LABS: ALANINE AMINOTRANSFERASE 31 U/L (12-78)
[2021-03-18 23:58] LABS: ACETONE, SERUM NEGATIVE (NEGATIVE)
[2021-03-19 00:50] LABS: BILIRUBIN,URINE NEGATIVE (NEGATIVE); BLOOD, URINE 2+ (NEGATIVE); CLARITY/URINE CLEAR (CLEAR); COLOR,URINE YELLOW (YELLOW); GLUCOSE,URINE 3+ (NEGATIVE); KETONES,URINE NEGATIVE (NEGATIVE); LEUKOCYTE ESTERASE ,URINE NEGATIVE (NEGATIVE); NITRITE, URINE POSITIVE (NEGATIVE); PROTEIN URINE 1+ (NEGATIVE); UROBILINOGEN,URINE 0.2 (0.2-1.0)
[2021-03-19 01:06] LABS: BACTERIA,URINE MANY /HPF (None Seen); BARBITURATE, URINE NEGATIVE (NEG <=200); BENZODIAZEPINE, URINE NEGATIVE (NEG <=150); CANNABINOID, URINE NEGATIVE (NEG <=50); COCAINE, URINE NEGATIVE (NEG <=150); METHAMPHETAMINES SCREEN,URINE NEGATIVE (NEG <=500); OPIATE, URINE NEGATIVE (NEG <=100); PHENCYCLIDINE SCREEN,URINE NEGATIVE (NEG <=25); UR TRICYCLIC ANTIDEPRESSANTS NEGATIVE (NEG <=300); URINE AMPHETAMINE NEGATIVE (NEG <=500); URINE METHADONE NEGATIVE (NEG <=200); URINE OXYCODONE SCREEN NEGATIVE (NEG <=100); URINE PROPOXYPHENE SCREEN NEGATIVE (NEG <=300); WBC,URINE 0-3 /HPF (0-3)
[2021-03-19 01:07] LABS: MUCUS,URINE None Seen /LPF (None Seen); URINE AMORPHOUS URATE 1+ /HPF (None Seen)
--- NOTE | 2021-03-19 02:25 | NUR ---
Patient will be admitted to care of DR. SHARMA. Admitted to TELEMETRY unit. BED PLACEMENT PENDING
[2021-03-19] MEDS ORDERED: NACL 0.9% 1,000 ML IV SCH (02:30)
[2021-03-19] MEDS ORDERED: NACL 0.9% 1,000 ML IV ONE (02:30)
[2021-03-19] MEDS ORDERED: INSULIN REGULAR, HUMAN 100 UNITS/ML, 10 ML VIAL (humuLIN R) SUBCUT PRN (02:30)
[2021-03-19] MEDS ORDERED: INSULIN NPH/REGULAR 70-30, 100 UNITS/ML, 10 ML VIAL SUBCUT ONE (02:30)
--- NOTE | 2021-03-19 04:10 | NUR ---
Pt pulling at gown and removing leads and wires. Pt redirected to remain calm.
--- NOTE | 2021-03-19 07:26 | NUR ---
ASSUMED CARE, PLACED ON RESIN REMOVER-SR -98BPM. TACHYPNIC AT 31 BREATHS/MIN ON NRB @15L @87%. PT RESTLESS IN BED, AWAKE, NON-VERBAL, UNABLE TO FOLLOW SIMPLE COMMANDS. SKIN TEAR NOTED TO RT FOREARM, GAUZE APPLIED, BLEEDING CONTROLLED. REPOSITIONED FOR COMFORT. WILL CONT TO MONITOR CLOSELY. WAIITNG FOR TELE BED.
[2021-03-19] MEDS ORDERED: NALOXONE HCL 0.4 MG/ML AMP (NARCAN) IVP PRN ×2 (07:30)
[2021-03-19] MEDS ORDERED: MUPIROCIN 2% TOPICAL OINTMENT 22 GM NS PRN (07:30)
[2021-03-19] MEDS ORDERED: POTASSIUM CHLORIDE 20 MEQ TAB.PRT.SR PO PRN (07:30)
[2021-03-19] MEDS ORDERED: LORazepam 2 MG/ML VIAL IVP PRN (07:30)
[2021-03-19] MEDS ORDERED: ACETAMINOPHEN 325 MG TABLET PO PRN ×2 (07:30→08:30)
[2021-03-19] MEDS ORDERED: MORPHINE 2 MG/ML INJ. SYRINGE IVP PRN ×2 (07:30)
[2021-03-19] MEDS ORDERED: DOCUSATE SODIUM 100 MG CAPSULE PO PRN (07:30)
[2021-03-19] MEDS ORDERED: MAGNESIUM SULFATE 50 ML IV PRN (07:30)
[2021-03-19] MEDS ORDERED: ASCORBIC ACID 500 MG TABLET PO SCH (09:00)
[2021-03-19] MEDS ORDERED: CHOLECALCIFEROL (VITAMIN D3) 2,000 UNIT TABLET PO SCH (09:00)
[2021-03-19] MEDS ORDERED: DECADRON 4 MG TABLET PO SCH (09:00)
[2021-03-19] MEDS ORDERED: AZITHROMYCIN 250 MG TABLET PO SCH (09:00)
[2021-03-19] MEDS ORDERED: HEPARIN SODIUM,PORCINE 5,000 UNITS/ML VIAL SUBCUT SCH (09:00)
--- NOTE | 2021-03-19 09:03 | NUR ---
PT UNABLE TO SWALLOW MEDS AT THIS TIME, PT DISORIENTED AND UNABLE TO SWALLOW. CN INFORMED, CALL OUT TO DR SHARMA TO INFORM.
[2021-03-19 09:08] LABS: ANION GAP 17 (5-15); CALCIUM 7.9 mg/dL (8.4-11.0); CREATININE 3.77 mg/dL (0.55-1.30); POTASSIUM 4.3 mmol/L (3.5-5.1); UREA NITROGEN, BLOOD 99 mg/dL (8-21)
[2021-03-19 10:12] LABS: CHLORIDE 128 mmol/L (98-107); SODIUM SERUM 168 mmol/L (136-145)
[2021-03-19 10:13] LABS: GLUCOSE 540 mg/dL (70-99)
--- NOTE | 2021-03-19 10:21 | NUR ---
CRITICAL LAB RESULTS INFORMED, NO NEW ORDERS RECEIVED. NA-[id number], CHL-128, BS-540, TROP-[id number]. DR SHARMA INFORMED OF DNR STATUS.
--- NOTE | 2021-03-19 10:52 | NUR ---
Patient will be admitted to care of DR SHARMA. Admitted to unit. Will go to room . Belongings list completed. Complete and up to date summary report printed. SBAR report to be given at bedside with opportunity for questions.
[2021-03-19 11:00] VITALS: BP_SYST 95
[2021-03-19] MEDS ORDERED: 0.45% NACL 1,000 ML IV SCH (11:15)
--- NOTE | 2021-03-19 11:15 | NUR ---
SKIN ASSESSMENT: PICTURE TAKEN FOR WOUNDS AND ECCHYMOSIS IN THE BODY (SEE CHART FOR PICTURES) ASSISTED BY KAI VERDUGO. NOTED F/C DISLODGED. BALLOON NOT INFLATED. AGEE CATH NOTED TO BE A STRAIGHT CATH WITH LEG BAG. 250CC LAKISHA URINE NOTED. NO SIGN OF BLEEDING OR TRAUMA TO PENILE AREA. WILL MONITOR FOR VOIDING.
--- NOTE | 2021-03-19 12:15 | NUR ---
NURSING NOTES 1130AM-1215PM: 1130AM: PATIENT ARRIVED TO ROOM 133B. LETHARGIC. 02 SAT 70%-80% ON 15L NRB. NOTED SOB. POOR PERFUSION TO BUE AND BLE EXTREMITIES. DNR/ DNI. NPO AT THIS TIME. CANNOT FOLLOW DIRECTION. VS 95/52 NONA (65) MAP, 90HR, 23 RESP, 96.0 T. 1145AM: APPLIED PATIENT ON 15L NRB PLUS 6L NC WITH MIST. 02 SAT REMAINING THE SAME BETWEEN 70%-80%. RT MADE AWARE. WILL CONT TO MONITOR. 1200PM: SPOKE WITH RT REGARDING 02 SAT DESATING TO 70%'S. WILL PAGED DR STOCKTON IF INCREASE 02 IS NECESSARY. 1210PM: PER RT, PATIENT IS PLACED ON 15L OXIMYZER 100% FIO2. 02 SAT 70%. AWAITING FOR DR STOCKTON CALL BACK. 1215PM: SPOKE WITH DR STOCKTON AND NO NEW ORDER AT THIS TIME. CONT WITH OXYMIZER 15L FIO2 100%. WILL CONT TO MONITOR. Addendum: 03/19/21 at 1418 by Twelve manufacturing sr engineer NURSING NOTES 1052AM-1215PM 1052AM: PATIENT ADMITTED TO ROOM 133B. 02 SAT 85% ON 15LNRB NOT 1130AM. DNR/DNI. LETHARGIC. NOTED SOB. POOR PERFUSION TO NUE AND BLE EXTREMITIES. 1130AM: SAME DOCUMENTATION BUT NOT ADMITTED AT 1130AM.
--- NOTE | 2021-03-19 12:30 | NUR ---
HIGH FLOW DUE TO 02 SAT DECLINING 1200PM-1230PM SPOKE WITH RT REGARDING PUTTING PATIENT ON HIGH FLOW DUE TO 02 SAT 70%. PATIENT WAS PLACED FROM 15 L NRB MASK + 6L NC TO 15L OXYMIZER 100% FIO2. HOWEVER, EVEN ON OXYMIZER PATIENT O2 IS REMAINING AT 70%. HIGH FLOW WILL NOT CHANGE THE [address] STOCKTON RETURN THE CALL AND MADE HER AWARE OF THE SITUATION. BIPAP IS MENTION BUT IT WOULD BE MORE UNCOMFORTABLE FOR THE PATIENT. ALSO 02 SAT WILL NOT CHANGE OR GET BETTER. PATIENT IS DNR/DNI. FAMILY IS MADE AWARE EARLIER WHEN PATIENT WAS ADMITTED THAT HE IS DECLINING. PER FAMILY THEY WILL COME AND GET THE COPY OF THE POLS. WILL HAVE THEM VISIT THE PATIENT BY THEN WHICH WAS ALLOWED BY CHARGE NURSE MITCHELL (BULL RIVETER) DUE TO DECLINING STATE EVEN THOUGH PATIENT IS ON ISOLATION. VISITOR IS ALLOWED TO VISIT 20 MIN MAX.
[2021-03-19] MEDS ORDERED: VANCOMYCIN HCL 750 MG in NS 250 ML IV SCH (13:00)
--- NOTE | 2021-03-19 13:23 | NUR ---
PATIENT DECLINING: CALLED [facility] (PATIENT'S ), PATIENT 02 SAT 70%, 40 HR. AGONAL BREATHING. SPOKE TO PATIENT'S TO COME ERIS DUE TO PATIENT'S STATE (END OF LIFE).
--- NOTE | 2021-03-19 13:25 | NUR ---
PATIENT 1325: PATIENT 1325 VERIFIED BY PRIMARY NURSE AND CHARGE NURSE ELEAZAR PATEL RN. Addendum: 03/19/21 at 1547 by Elaine Bill RN PATIENT PRONOUNCED AT 1325 VERIFIED BY PRIMARY NURSE ERICKSON CAI AND CHARGE NURSE ELEAZAR PATEL RN.
--- NOTE | 2021-03-19 13:29 | NUR ---
PAGED DR SHARMA: AWAITING FOR CALL BACK. PATIENT [id number].
--- NOTE | 2021-03-19 13:40 | NUR ---
LFA IV REMOVED. LFA IV REMOVED. IV CATH INTACT WHEN REMOVED. COVER SITE WITH GAUZE AND SECURE WITH PAPER TAPE.
--- NOTE | 2021-03-19 13:50 | NUR ---
PATIENT'S AT THE BEDSIDE.
--- NOTE | 2021-03-19 14:07 | NUR ---
[facility] CALL[facility] AT 1407. # [phone].
--- NOTE | 2021-03-19 14:15 | NUR ---
4 HOUR WINDOW: MADE AWARE TO PATIENT'S DAUGHTER AND WHO IS AT THE BEDSIDE THAT FACILITY PROTOCOL FOR THE BODY TO STAY IN THE ROOM IS 4 HOURS. PAST 4 HOUR, THE BODY CAN START DECOMPOSING. OTHER FAMILY MEMBERS ARE STILL COMING TO SEE THE PATIENT PER PATIENT'S DAUGHTER. WILL GIVE THEM TIME TO GRIEF.
--- NOTE | 2021-03-19 14:18 | NUR ---
CALLED RN DOCUMENT IMPROVEMENT'S CALLED [employer] AT 1418 SPOKE WITH Vicky CALLES AND STATED THAT PATIENT IS NOT A RN DOCUMENT IMPROVEMENT CASE.
--- NOTE | 2021-03-19 14:20 | NUR ---
SPOKE WITH PATIENT'S FAMILY PATIENT'S DAUGHTER REQUESTED FOR AUTOPSY BUT PATIENT IS NOT A WAXER OPERATOR CASE. MADE THEM AWARE THAT THEY CAN STILL DO AUTOPSY ON THEIR ON BUT OUT OF THEIR POCKET. PER PATIENT'S [facility], NO NEED AUTOPSY.
--- NOTE | 2021-03-19 17:25 | NUR ---
4 HOUR WINDOW ENDS: MADE AWARE TO FAMILY AT THE BEDSIDE THAT 4 HOUR WINDOW FOR THE BODY TO REMAIN IN THE ROOM HAS PASSED. PATIENT'S SON REQUESTED FOR ANOTHER HOUR SINCE HE JUST GOT HERE. OK" TO GIVE ANOTHER HOUR FOR FAMILY TO STAY PER CHARGE NURSE MAGALYS.
--- NOTE | 2021-03-19 18:25 | NUR ---
5 HOUR WINDOW PAST: CHARGE NURSE MAGALYS CAI SPOKE WITH PATIENT'S FAMILY THAT BODY WILL NEED TO BE TRANSFER TO THE [facility] [place]. 5 HOUR WINDOW HAS PASSED. GAVE THEM TILL 1840 TO STAY. BY THEN BODY WILL NEED TO BE TRANSFER TO THE [facility] [place].
--- NOTE | 2021-03-19 18:32 | NUR ---
MORTUARY CALLED: ETA FOR GAS USAGE METER CLERK IN THE [facility]OS[facility] PER MORTUARY ([facility]) 3 HOURS FROM NOW. FAMILY IS MADE AWARE.
--- NOTE | 2021-03-19 18:54 | NUR ---
BODY TRANSFER TO THE [facility] [place]: 1849: BODY PLACED INTO BODY BAG BY 2 COUNTRY PRINTER APPRENTICE TO BE TRANSFER TO THE [facility]. FAMILY LEFT THE ROOM. 1853: CALLED MORTUARY REGARDING PATIENT REQUESTING FOR AUTOPSY. PER TINA PERSONAL, HE WILL CALL THE NEXT OF KIN, [facility] (PATIENT ) SINCE THEY DO NOT DO AUTOPSY. FAMILY NEED TO CALL A PRIVATE AUTOPSY COMPANY.
--- NOTE | 2021-03-19 19:10 | NUR ---
BODY LEFT THE UNIT: SECURITY TOOK THE BODY TO THE [place].
== END 2021-03-19 13:25 | DRG 871 ==
LOC: SED 21:09 → STU 03-19 02:22
PROVIDERS: ADMIT General Practice; ATTEND General Practice
DX: A41.9 Sepsis, unspecified organism (principal); E11.00 Type 2 diabetes mellitus with hyperosmolarity without nonketotic hyperglycemic-hyperosmolar coma (NKHHC); U07.1 COVID-19; J12.82 Pneumonia due to coronavirus disease 2019; N17.0 Acute kidney failure with tubular necrosis; E43 Unspecified severe protein-calorie malnutrition; I21.A1 Myocardial infarction type 2; E87.0 Hyperosmolality and hypernatremia; G30.9 Alzheimer's disease, unspecified; F02.80 Dementia in other diseases classified elsewhere, unspecified severity, without behavioral disturbance, psychotic disturbance, mood disturbance, and anxiety; E11.65 Type 2 diabetes mellitus with hyperglycemia; Z66 Do not resuscitate; E86.1 Hypovolemia; Z86.73 Personal history of transient ischemic attack (TIA), and cerebral infarction without residual deficits
CPT/HCPCS: 36415; 70450-TC; 71045; 76376; 80048; 80053; 80307; 81000; 82009; 82140; 82962; 83036; 83605; 84484; 85025; 85610-TC; 85730-TC; 86140; 87040; 87086; 93005; 96372; 96374; 96375; 99291; 99292; G0378; G0480; G0481; G0482; J1644; J2060; J2543; J3370; J7050; J8540; Q0144